=== PATIENT | male | born 1985 | race Caucasian/White ===

== ENCOUNTER 2016-11-25 01:27 | Emergency (ER) | payer OTHER ==
[~2016-11-25] VITALS: Ht 182.9 cm; Wt 141.7 kg
[~2016-11-25 01:27] MED LIST: ADVIN25/60 INH; ALBUAER2 INH; AZITTAB PO; GABA-112 PO; IPRASOL4 INH; MONT1TAB5 PO; PRED10TA PO; WARF5TAB90 PO; [UNRECOGNIZED DRUG - CODE] INJ
[2016-11-25 01:29] VITALS: TEMP 37.4; Ht 182.9 cm; Wt 141.7 kg
[2016-11-25] MEDS ORDERED: SODIUM CHLORIDE 0.9% 1000ML 1,000 ML IV STA ×2 (01:36)
[2016-11-25] MEDS ORDERED: ONDANSETRON INJ 2 MG/ML 2 ML VIAL IV STA (01:42)
[2016-11-25] MEDS ORDERED: ONDANSETRON INJ 2 MG/ML 2 ML VIAL ONE (01:42)
[2016-11-25] MEDS ORDERED: OPTIRAY 320 IV PRN (01:45)
[2016-11-25 01:47] VITALS: O2SAT 96
[2016-11-25 01:56] LABS: BASO % 0.7 %; BASO ABS # 0.03 K/uL (0-0.2); COMPLETE YES; EOS % 0.2 %; HEMATOCRIT 42.2 % (42-52); IG% 0.4 %; LYMPH ABS # 1.56 K/uL (1.2-3.4); MEAN CELL VOLUME 81.2 fL (80-100); MEAN CORPUSCULAR HEMOGLOBIN 29.8 pg (25-34); MEAN CORPUSCULAR HGB CONC 36.7 g/dl (32-36); MONO % 10.5 %; NEUT % 54.2 %; PLATELET COUNT 211 K/uL (130-400); WHITE BLOOD COUNT 4.59 K/uL (4.8-10.8)
[2016-11-25 01:58] LABS: ISTAT CREATININE 1.1 mg/dl (0.6-1.3); ISTAT IONIZED CALCIUM 1.07 mmol/l (1.12-1.32)
[2016-11-25 02:14] LABS: ALT/SGPT 54 U/L (12-78); AST/SGOT 46 U/L (15-37); BLOOD UREA NITROGEN 14 mg/dl (7-18); BUN/CREATININE RATIO 10.6 (10-20); CALCIUM 8.7 mg/dl (8.5-10.1); CARBON DIOXIDE 22 mmol/L (21-32); CHLORIDE 104 mmol/L (98-107); GLUCOSE 111 mg/dl (70-99); POTASSIUM 3.8 mmol/L (3.5-5.1); SODIUM 138 mmol/L (136-145)
[2016-11-25 02:17] LABS: INR 1.7 (0.9-1.1); PARTIAL THROMBOPLASTIN RATIO 1.8; PROTHROMBIN TIME (PATIENT) 18.7 SECONDS (9.0-12.0)
[2016-11-25 02:19] LABS: ALKALINE PHOSPHATASE 73 U/L (45-117)
[2016-11-25] MEDS ORDERED: ALBUT/IPRATROP 3MG/0.5MG NEB 3 ML VIAL INH STA (02:43)
[2016-11-25] MEDS ORDERED: LORAZEPAM 2 MG/ML 1 ML VIAL IV STA (02:43)
[2016-11-25] MEDS ORDERED: VNTHFA/IN INH (02:45)
[2016-11-25] MEDS ORDERED: WARFARIN SOD 5 MG TAB PO ONE ×2 (03:00)
[2016-11-25 03:46] VITALS: BP 124/90; PULSE 94; O2SAT 95
--- NOTE | 2016-11-25 03:47 | EMERGENCY ROOM VISIT NOTE ---
History First contact with patient: 01:32 Chief Complaint: SHORTNESS OF BREATH Stated Complaint: SHORTNESS OF BREATH,NUMBNESS IN NECK Nursing Triage Summary: Pt c/o SOB. 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 reports he has not been taking his Coumadin. "I was taking care of my kid". pt also reports he had bloody nose earlier today History of Present Illness The patient is a 31 year old male who presents to the Emergency Room with complaints of increasing shortness of breath with numbness and tingling for the past 2 days to his not been taking his Coumadin as he was taking care of this child. Patient states he's had a saddle emboli before and symptoms feel similar. 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 He complains of bilateral calf pain and tingling the past few days. Patient denies chest pain, fever, chills, abdominal pain, vomiting, diarrhea, diaphoresis. No prior heart testing. No prior heart disease. He used to smoke. No recent alcohol. No diabetes, blood pressure or cholesterol. Last INR was over a month ago and patient thinks it was normal. Review of Systems See HPI for pertinent positives & negatives. A total of 10 systems reviewed and were otherwise negative. Past Medical/Surgical History Medical Problems: (1) Asthma (2) Asthma exacerbation (3) DVT (deep venous thrombosis) (4) Flu-like symptoms (5) Pulmonary embolism (6) Saddle embolism of pulmonary artery Family History Blood clots Cancer Diabetes mellitus Heart disease Hypertension Social History Smoking Status: Former Smoker Alcohol Use: none Marital Status: Housing Status: lives with family Occupation Status: employed Current/Historical Medications Scheduled Gabapentin (Neurontin), 100 MG PO BID Montelukast Sodium (Montelukast Sodium), 10 MG PO DAILY Warfarin Sodium (Coumadin), 5 MG PO 2XWK Warfarin Sodium (Coumadin), 7.5 MG PO 5XWK Scheduled PRN Albuterol Hfa (Ventolin Hfa), 2 PUFFS INH Q4 PRN for SOB/Wheezing Fluticasone Prop/Salmeterol (Advair Diskus 250/50 60 Dose), 1 PUFFS INH BID PRN for SOB/Wheezing Ipratropium-Albuterol (Duoneb), 1 TREATMENT INH QID PRN for SOB/Wheezing Allergies Coded Allergies: Amoxicillin (Verified Allergy, Severe, THROAT SWELLING, RASH, 11/25/16) Penicillins (Verified Allergy, Severe, THROAT SWELLING,RASH, 11/25/16) Cromolyn (Verified Allergy, Intermediate, TROUBLE BREATHING, "CLOSES ME UP ", 11/25/16) Metaproterenol (Verified Allergy, Unknown, BREATHING DIFFICULTY, 11/25/16) Physical Exam Vital Signs Date Time Temp Pulse Resp B/P Pulse Ox O2 Delivery O2 Flow Rate FiO2 11/25/16 03:04 84 18 147/87 98 Room Air 11/25/16 02:17 86 20 150/97 95 Room Air 11/25/16 01:47 95 Room Air 11/25/16 01:47 96 Room Air 11/25/16 01:47 96 Room Air 11/25/16 01:44 109 11/25/16 01:29 37.4 118 24 156/101 96 Room Air Physical Exam VITALS: Vitals are noted on the nurse's note and reviewed by myself. Vital signs tachycardic GENERAL: Pleasant male who is anxious appearing and appearing short of breath, nondiaphoretic, well-developed well-nourished. SKIN: The skin was without rashes, erythema, edema, or bruising. There is no tenting of the skin. Capillary reflex less than 2 seconds. HEAD: Normocephalic atraumatic. EARS: External auditory canals clear, tympanic membranes pearly jeong without erythema or effusion bilaterally. EYES: Pupils equal round and reactive to light and accommodation. Conjunctivae without injection, sclerae without icterus. Extraocular movements intact. NOSE: Patent, turbinates without inflammation or discharge. No sinus tenderness. MOUTH: Mucous membranes moist. Pharynx without erythema or exudate. Uvula midline. Airway patent. Tongue does not deviate. NECK: Supple without nuchal rigidity. No lymphadenopathy. No thyromegaly. Cervical spine is nontender. No JVD. HEART: Regular rate and rhythm without murmurs gallops or rubs. LUNGS: Clear to auscultation bilaterally without wheezes, rales or rhonchi. No dullness to percussion. No retractions or accessory muscle use. ABDOMEN: Positive bowel sounds x 4. Normal tympanic percussion. Soft, protuberant, obese, nontender, without masses or organomegaly. Mccullough sign negative. No guarding or rebound tenderness. MUSCULOSKELETAL: No muscle atrophy, erythema, noted. Trace pitting edema to the lower extremities bilaterally. NEURO: Patient was alert and oriented to person place and time. Normal sensation to light and sharp touch. No focal neurological deficits. Medical Decision & Procedures Laboratory Results 11/25/16 01:45 Red Blood Count 5.20, Mean Corpuscular Volume 81.2, Mean Corpuscular Hemoglobin 29.8, Mean Corpuscular Hemoglobin Concent 36.7, Mean Platelet Volume 9.0, Neutrophils (%) (Auto) 54.2, Lymphocytes (%) (Auto) 34.0, Monocytes (%) (Auto) 10.5, Eosinophils (%) (Auto) 0.2, Basophils (%) (Auto) 0.7, Neutrophils # (Auto ) 2.49, Lymphocytes # (Auto) 1.56, Monocytes # (Auto) 0.48, Eosinophils # (Auto ) 0.01, Basophils # (Auto) 0.03 11/25/16 01:45 Test 11/25/16 01:42 11/25/16 01:45 11/25/16 03:03 Bedside Hemoglobin 15.0 g/dl (14.0-18.0) Bedside Hematocrit 44 % (42-52) Bedside Sodium 136 mEq/L (135-144) Bedside Potassium 3.9 mEq/L (3.3-5.0) Bedside Chloride 102 mEq/L (101-112) Bedside Total CO2 20 mEq/l (24-31) Bedside Blood Urea Nitrogen 13 mg/dl (7-18) Bedside Creatinine 1.1 mg/dl (0.6-1.3) Bedside Glucose (other) 111 mg/dl (70-99) Bedside Ionized Calcium (Carmen) 1.07 mmol/l (1.12-1.32) White Blood Count 4.59 K/uL (4.8-10.8) Red Blood Count 5.20 M/uL (4.7-6.1) Hemoglobin 15.5 g/dL (14.0-18.0) Hematocrit 42.2 % (42-52) Mean Corpuscular Volume 81.2 fL (80-100) Mean Corpuscular Hemoglobin 29.8 pg (25-34) Mean Corpuscular Hemoglobin Concent 36.7 g/dl (32-36) Platelet Count 211 K/uL (130-400) Mean Platelet Volume 9.0 fL (7.4-10.4) Neutrophils (%) (Auto) 54.2 % Lymphocytes (%) (Auto) 34.0 % Monocytes (%) (Auto) 10.5 % Eosinophils (%) (Auto) 0.2 % Basophils (%) (Auto) 0.7 % Neutrophils # (Auto) 2.49 K/uL (1.4-6.5) Lymphocytes # (Auto) 1.56 K/uL (1.2-3.4) Monocytes # (Auto) 0.48 K/uL (0.11-0.59) Eosinophils # (Auto) 0.01 K/uL (0-0.5) Basophils # (Auto) 0.03 K/uL (0-0.2) RDW Standard Deviation 39.7 fL (36.4-46.3) RDW Coefficient of Variation 13.3 % (11.5-14.5) Immature Granulocyte % (Auto) 0.4 % Immature Granulocyte # (Auto) 0.02 K/uL (0.00-0.02) Prothrombin Time 18.7 SECONDS (9.0-12.0) Prothromb Time International Ratio 1.7 (0.9-1.1) Activated Partial Thromboplast Time 45.9 SECONDS (21.0-31.0) Partial Thromboplastin Ratio 1.8 Anion Gap 12.0 mmol/L (3-11) Est Creatinine Clear Calc Drug Dose 118.0 ml/min Estimated GFR () 83.1 Estimated GFR (Non- 71.7 BUN/Creatinine Ratio 10.6 (10-20) Calcium Level 8.7 mg/dl (8.5-10.1) Magnesium Level 2.0 mg/dl (1.8-2.4) Total Bilirubin 0.9 mg/dl (0.2-1) Direct Bilirubin 0.1 mg/dl (0-0.2) Aspartate Amino Transf (AST/SGOT) 46 U/L (15-37) Alanine Aminotransferase (ALT/SGPT) 54 U/L (12-78) Alkaline Phosphatase 73 U/L (45-117) Total Creatine Kinase 195 U/L (39-308) Creatine Kinase MB < 0.5 ng/ml (0.5-3.6) Creatine Kinase MB Ratio (0-3.0) Total Protein 7.8 gm/dl (6.4-8.2) Albumin 3.5 gm/dl (3.4-5.0) Troponin I < 0.015 ng/ml (0-0.045) Medications Administered Medications (Trade) Dose Ordered Sig/Roberta Route Start Time Stop Time Status Last Admin Dose Admin Sodium Chloride (Nss 1000ml) 1,000 ml @ 999 mls/hr Q1H1M STAT IV 11/25/16 01:36 11/25/16 02:36 DC 11/25/16 01:45 999 MLS/HR Ondansetron HCl (Zofran Inj) 4 mg NOW STAT IV 11/25/16 01:42 11/25/16 01:44 DC 11/25/16 01:45 4 MG Albuterol/ Ipratropium (Duoneb) 3 ml NOW STAT INH 11/25/16 02:43 11/25/16 02:44 DC 11/25/16 02:59 3 ML Lorazepam (Ativan Inj) 1 mg NOW STAT IV 11/25/16 02:43 11/25/16 02:44 DC 11/25/16 02:59 1 MG Warfarin Sodium (Coumadin Tab) 5 mg NOW ONCE PO 11/25/16 03:00 11/25/16 03:01 DC 11/25/16 02:57 5 MG Warfarin Sodium (Coumadin Tab) 5 mg NOW ONCE PO 11/25/16 03:00 11/25/16 03:01 DC 11/25/16 02:58 5 MG ED Course Prior records/ancillary studies reviewed. Triage Nursing notes reviewed. The patient's history was concerning for respiratory difficulties. Differential diagnosis: Etiologies such as infections, reactive airway disease, pneumonia, pneumothorax , COPD, CHF, cardiac ischemia, pulmonary embolism, musculoskeletal, gastrointestinal, as well as others were entertained. Physical examination: As above. ER treatment provided: IV fluids, nebulizer, Coumadin On reassessment the patient felt better. Diagnostic interpretation by me: The electrocardiogram was negative for acute ischemic or pathologic change. Normal sinus, normal intervals, no acute ST-T wave changes. Rate of 15. Impression sinus tachycardia interpreted by myself The labs revealed negative troponin subtherapeutic INR Creatinine 1.1 no leukocytosis Imaging studies: Chest x-ray with no acute consolidation or pneumothorax or free air per my interpretation CTA CHEST: Comparison: CTA dated 07/09/2016. Evaluation for pulmonary emboli is somewhat limited due to suboptimal opacification of pulmonary arteries. No evidence of pulmonary embolism accounting for limitations of exam. No thoracic aortic aneurysm or dissection. No focal consolidation, pleural effusion or pneumothorax. Stable small granuloma in the left lower lobe. Fatty infiltration of the liver. Radiologist: Ramya Casillas MD This appears to be consistent with dyspnea that could be related to anxiety. Patient had 2 negative troponins 2 hours apart. Normal EKG. Patient is well- appearing. Unremarkable workup above except subtherapeutic INR. He was given extra dose of Coumadin and advised to restart his Coumadin. He was strongly encouraged to avoid skipping his doses. He was advised follow-up family care this week or here in the ER sooner for chest pain, difficulty breathing, worsening signs or symptoms or as needed. No PE. No pneumonia. Stable vital signs. By the evaluation outlined above emergent etiologies such as CHF, cardiac ischemia, pulmonary embolism, reactive airway disease, pneumonia, pneumothorax, musculoskeletal, serious bacterial infections, as well as others were deemed relatively unlikely. The pt informed about the findings as listed above. All questions were answered and pleased with the treatment. Return instructions were outlined and the patient was discharged in stable condition. Referral: The patient was referred back to their primary care physician for follow-up in 2 to 3 days for a recheck of the current condition. Case reviewed by attending Medical Decision As above Impression Primary Impression: Dyspnea Additional Impression: Subtherapeutic international normalized ratio (INR) Departure Information Dispostion Home / Self-Care Condition GOOD Referrals Bishop Negrete PA-C (PCP) Patient Instructions My [facility] Additional Instructions Do not skip your doses of medications. This can cause serious side effects. Acetaminophen(Tylenol) may be used for fever or pain. Use 1000mg every six hours as needed. Avoid using more than 3000mg in a 24 hour period. Rest and drink plenty of fluids as tolerated. Continue current medications. Repeat your INR in 1 week. Do this with the family care doctor. Avoid strenuous activities and anything that worsens your pain. Resume normal activities once your symptoms resolve. Return to the ER immediately for worsening or persistent difficulty breathing, abdominal pain, vomiting, fevers, chest pains,worsening of your condition, or as needed. Follow up with your primary physician in 2-3 days for a recheck of your current condition. Problem Qualifiers Primary Impression: Dyspnea Dyspnea type: shortness of breath Qualified Codes: R06.02 - Shortness of breath
--- NOTE | 2016-11-25 06:43 | DIAGNOSTIC IMAGING REPORT ---
CHEST ONE VIEW PORTABLE CLINICAL HISTORY: Atypical chest pain, shortness of breath. History of pulmonary embolism. COMPARISON STUDY: 07/10/2016 FINDINGS: The cardiac images all contours remain stable. There are low lung volumes with mild hypoventilatory changes the lung bases. There is no focal pulmonary consolidation. There is no failure. There are no pleural effusions.[ IMPRESSION: Low lung volumes. No evidence of focal pulmonary consolidation. No evidence of failure. Electronically signed by: Sheldon Galindo M.D. 11/25/2016 6:41 AM Dictated Date/Time: 11/25/2016 6:40 AM
--- NOTE | 2016-11-25 08:13 | DIAGNOSTIC IMAGING REPORT ---
CHEST CTA for PULMONARY ARTERIES CT DOSE: 698.97 mGy.cm HISTORY: Short of breath. TECHNIQUE: Multiaxial CT images of the chest were performed following the intravenous administration of contrast to evaluate the pulmonary arteries. Maximal intensity projection images were also obtained. COMPARISON STUDY: Chest CTA 07/09/2016. FINDINGS: There is a normal caliber thoracic aorta with no evidence for dissection. Evaluation for pulmonary emboli is suboptimal due to poor opacification of the segmental and subsegmental pulmonary arteries. These are near nondiagnostic. No evidence for pulmonary embolus within the main or lobar pulmonary arteries. No pleural effusions. No pneumothorax. Hepatic steatosis. The unenhanced spleen is borderline enlarged. This remains unchanged. No mediastinal or hilar lymphadenopathy. The central airways are patent. Stable punctate calcified granuloma within the left lower lobe. IMPRESSION: No evidence for central pulmonary embolus with limitations as described above. Hepatic steatosis and borderline splenomegaly. This remains unchanged. Electronically signed by: Billy Pagan M.D. 11/25/2016 8:11 AM Dictated Date/Time: 11/25/2016 8:06 AM
== END 2016-11-25 03:58 | disposition home or self-care (01) ==
LOC: C.EDB 01:29
DX: R06.00 Dyspnea, unspecified (principal); R79.1 Abnormal coagulation profile; Z86.711 Personal history of pulmonary embolism; Z79.01 Long term (current) use of anticoagulants; J45.901 Unspecified asthma with (acute) exacerbation; Z87.891 Personal history of nicotine dependence; Z83.3 Family history of diabetes mellitus; Z82.49 Family history of ischemic heart disease and other diseases of the circulatory system